=== PATIENT | female | born 1995 | race Caucasian/White ===

== ENCOUNTER 2024-07-20 13:31 | Emergency (ER) | payer MEDICAID, OTHER ==
[~2024-07-20] VITALS: Ht 170.2 cm; Wt 105.0 kg
[2024-07-20 13:46] VITALS: O2SAT 98
[2024-07-20] MEDS: IBUPROFEN 600MG TABLET PO ONE (14:21)
[2024-07-20] MEDS ORDERED: ALBU90AE INH (15:59)
[2024-07-20 16:00] VITALS: BP 132/57; PULSE 84; RESP 18; TEMP 36.89184; O2SAT 100
== END 2024-07-20 16:00 | disposition home or self-care (01) ==
LOC: ER 13:31
DX: J02.9 Acute pharyngitis, unspecified (principal); J45.909 Unspecified asthma, uncomplicated; Z98.890 Other specified postprocedural states
CPT/HCPCS: 87070; 87430; 99283

== ENCOUNTER 2024-08-22 20:23 | Emergency (ER) | payer MEDICAID, OTHER ==
[~2024-08-22] VITALS: Ht 165.1 cm; Wt 115.2 kg
[~2024-08-22 20:23] MED LIST: ALBU90AE INH
[2024-08-22 20:47] VITALS: BP 164/95; PULSE 68; RESP 16; TEMP 97.7; O2SAT 100
[2024-08-22] MEDS ORDERED: CETI5TAB5 MT (22:00)
== END 2024-08-23 00:53 | disposition home or self-care (01) ==
LOC: ER 20:23
DX: R04.0 Epistaxis (principal); J45.909 Unspecified asthma, uncomplicated; Z98.890 Other specified postprocedural states
CPT/HCPCS: 99282

== ENCOUNTER 2024-12-05 15:06 | Emergency (ER) | payer MEDICAID, OTHER ==
[~2024-12-05] VITALS: Ht 165.1 cm; Wt 114.0 kg
[~2024-12-05 15:06] MED LIST changes: +CETI5TAB5 MT
[2024-12-05 15:11] VITALS: O2SAT 99
[2024-12-05 15:26] VITALS: BP 149/96; PULSE 78; RESP 18; TEMP 36.7; O2SAT 99
[2024-12-05] MEDS ORDERED: P20 PO (16:18)
[2024-12-05] MEDS ORDERED: PSEU120T56 MT (16:18)
[2024-12-05] MEDS ORDERED: ALBU18HF2 IH (16:18)
== END 2024-12-05 16:24 | disposition home or self-care (01) ==
LOC: ER 15:06
DX: J06.9 Acute upper respiratory infection, unspecified (principal); B97.89 Other viral agents as the cause of diseases classified elsewhere; J45.909 Unspecified asthma, uncomplicated; Z79.52 Long term (current) use of systemic steroids
CPT/HCPCS: 99283

== ENCOUNTER 2025-02-14 17:02 | Emergency (ER) | payer MEDICAID, OTHER ==
[~2025-02-14] VITALS: Ht 165.1 cm; Wt 108.0 kg
[~2025-02-14 17:02] MED LIST changes: +ALBU18HF2 IH; +P20 PO; +PSEU120T56 MT
[2025-02-14 17:08] VITALS: O2SAT 100
[2025-02-14 17:18] VITALS: BP 131/86; PULSE 64; RESP 14; TEMP 36.7; O2SAT 98
== END 2025-02-14 21:51 | disposition left against medical advice (07) ==
LOC: ER 17:02
DX: M79.671 Pain in right foot (principal); M79.672 Pain in left foot; Z53.21 Procedure and treatment not carried out due to patient leaving prior to being seen by health care provider

== ENCOUNTER 2025-04-13 19:33 | Emergency (ER) | payer MEDICAID ==
[~2025-04-13] VITALS: Ht 165.1 cm; Wt 110.0 kg
[2025-04-13 19:45] VITALS: O2SAT 99
[2025-04-13 20:09] LABS: BASOPHILS % 0.9 % (0.0-2.0); EOSINOPHILS % 0.5 % (0.0-5.0); HEMATOCRIT. 41.5 % (36.0-48.0); HEMOGLOBIN. 13.6 g/dL (12.0-16.0); LYMPHOCYTES % 31.4 % (20.0-50.0); MEAN PLATELET VOLUME 8.8 fl (7.4-10.4); MONOCYTES % 9.2 % (2.0-8.0); NEUTROPHILS % 58.0 % (40.0-76.0); PLATELET 231 x1000/uL (130-400); RED BLOOD CELL COUNT 5.03 mill/uL (4.2-5.4); RED CELL DISTRIBUTION WIDTH 14.7 % (11.6-14.6)
[2025-04-13 20:20] LABS: INR 1.1
[2025-04-13 20:21] LABS: HCG SCREEN NEGATIVE
[2025-04-13 20:27] LABS: CREATININE 0.7 mg/dL (0.6-1.0); UREA NITROGEN BLOOD 9 mg/dL (9-23)
[2025-04-13 20:28] LABS: TROPONIN I HIGH SENSITIVITY 4 ng/L (3.0-34)
[2025-04-13 21:37] VITALS: BP 164/90; PULSE 76; RESP 18; TEMP 36.6; O2SAT 100
== END 2025-04-13 21:46 | disposition home or self-care (01) ==
LOC: ER 19:33
DX: R00.2 Palpitations (principal); R07.89 Other chest pain; J45.909 Unspecified asthma, uncomplicated; Z79.52 Long term (current) use of systemic steroids
CPT/HCPCS: 36415; 71045; 80048; 83880; 84484; 84703; 85025; 93005; 99285